=== PATIENT | female | born 1970 | race Two or more races ===

== ENCOUNTER 2016-10-19 18:34 | Inpatient (IN) | payer MEDICAID ==
[~2016-10-19] VITALS: Ht 152.4 cm; Wt 98.0 kg
[2016-10-19 19:09] LABS: Urine RBC None Seen /hpf (0 - 4)
[2016-10-19 19:21] LABS: Urine Bilirubin Negative (Negative); Urine Blood Negative /uL (Negative); Urine Color Yellow (Yellow); Urine Glucose Normal (Normal); Urine Ketone Negative (Negative); Urine Nitrite Negative (Negative); Urine Squamous Epithelial Cell FEW /hpf (<5); Urine Urobilinogen Normal (Negative); Urine pH 6.5 (5.0-8.0)
[2016-10-19 19:27] LABS: Basophils # (auto) 0 uL; Basophils % (auto) 0.5 % (0.0-2.0); Eosinophils # (auto) 0.5 uL; Eosinophils % (auto) 7.7 % (0.0-7.0); Hematocrit 39.9 % (36.0-46.0); Hemoglobin 13.6 g/dL (12.2-16.2); Lymphocytes # (auto) 1.7 uL; Lymphocytes % (auto) 24.6 % (10.0-50.0); Mean Corpuscular Hemoglobin 30.6 pg (28.0-32.0); Mean Platelet Volume 7.2 fL (7.4-10.4); Monocytes # (auto) 0.5 uL; Monocytes % (auto) 7.5 % (0.0-12.0); Neutrophils # (auto) 4.1 uL; Neutrophils % (auto) 59.7 % (37.0-80.0); Platelet Count (auto) 279 10^3/uL (140-450); Red Cell Distribution Width 13.4 % (11.6-16.0); White Blood Cell 6.9 10^3/uL (4.4-10.8)
[2016-10-19 19:42] LABS: INR 0.9 (0.9-1.15); Partial Thromboplastin Time 25.7 sec (22.64-33.71); Prothrombin Time 9.8 sec (9.37-12.3)
[2016-10-19 19:51] LABS: Albumin 3.4 g/dL (3.4-5.0); BUN/Creatinine Ratio 14.1; Bilirubin, Total 0.7 mg/dL (0.2-1.0); Calcium 8.4 mg/dL (8.5-10.1); Potassium 3.6 mmol/L (3.5-5.1); Total Protein 7.4 g/dL (6.4-8.2)
[2016-10-20] VITALS (7 sets, daily range): BP systolic 109–124; BP diastolic 64–81
[2016-10-20] MEDS ORDERED: ONDANSETRON HCL 4 MG/2 ML VIAL IV ONE (01:00)
[2016-10-20] MEDS ORDERED: HYDROmorphone HCL 2 MG/ML VL IV ONE (01:00)
[2016-10-20] MEDS ORDERED: SODIUM CHLORIDE 0.9% 1,000 ML IV ONE (01:00)
[2016-10-20] MEDS: SODIUM CHLORIDE 0.9% 1,000 ML IV SCH ×2 (02:40→18:29)
[2016-10-20] MEDS ORDERED: HYDR-531 PO (04:01)
[2016-10-20] MEDS ORDERED: ACYC400T PO (04:01)
[2016-10-20] MEDS ORDERED: ALPR1TAB7 PO (04:01)
[2016-10-20] MEDS ORDERED: FER325T PO (04:01)
[2016-10-20] MEDS: HYDROmorphone HCL 2 MG/ML VL IV PRN ×4 (06:24→21:12)
[2016-10-20] MEDS: ONDANSETRON HCL 4 MG/2 ML VIAL IV PRN ×2 (06:24→11:03)
[2016-10-20] MEDS ORDERED: cefTRIAXone 1GM/50ML D5W 50 ML IV ONE (11:30)
[2016-10-20] MEDS: metroNIDAZOLE 250MG/50 ML 50 ML IV SCH ×2 (13:53→21:11)
[2016-10-21] MEDS: HYDROmorphone HCL 2 MG/ML VL IV PRN ×6 (01:20→22:08)
[2016-10-21] MEDS: metroNIDAZOLE 250MG/50 ML 50 ML IV SCH ×3 (04:40→21:00)
[2016-10-21 05:00] VITALS: BP 115/68
[2016-10-21 05:40] LABS: Basophils # (auto) 0 uL; Basophils % (auto) 0.2 % (0.0-2.0); Eosinophils # (auto) 0.3 uL; Eosinophils % (auto) 4.8 % (0.0-7.0); Hematocrit 38.4 % (36.0-46.0); Hemoglobin 13.1 g/dL (12.2-16.2); Lymphocytes # (auto) 1.5 uL; Lymphocytes % (auto) 20.4 % (10.0-50.0); Mean Corpuscular Hemoglobin 31.4 pg (28.0-32.0); Mean Corpuscular Hgb Conc. 34.2 g/dL (32.0-36.0); Mean Corpuscular Volume 91.8 fL (80.0-100.0); Mean Platelet Volume 7.2 fL (7.4-10.4); Monocytes # (auto) 0.5 uL; Monocytes % (auto) 6.3 % (0.0-12.0); Neutrophils % (auto) 68.3 % (37.0-80.0); Platelet Count (auto) 284 10^3/uL (140-450); Red Cell Distribution Width 13.5 % (11.6-16.0); White Blood Cell 7.3 10^3/uL (4.4-10.8)
[2016-10-21 05:49] LABS: BUN/Creatinine Ratio 14.7; Calcium 7.9 mg/dL (8.5-10.1)
[2016-10-21 05:52] LABS: Total Protein 7.1 g/dL (6.4-8.2)
[2016-10-21 07:54] VITALS: BP 135/76
[2016-10-21 08:00] VITALS: BP 138/76
[2016-10-21] MEDS: MORPHINE SULF INJ 2 MG/ML SYRINGE 1ML IV PRN (08:36)
[2016-10-21] MEDS: cefTRIAXone 1GM/50ML D5W 50 ML IV SCH (09:27)
[2016-10-21] MEDS: ONDANSETRON HCL 4 MG/2 ML VIAL IV PRN (11:00)
[2016-10-21] MEDS: SODIUM CHLORIDE 0.9% 1,000 ML IV SCH (11:09)
[2016-10-21] MEDS ORDERED: POVIDONE IODINE 10 % TOPICAL OINT 30GM TOP ONE (12:55)
[2016-10-21] MEDS ORDERED: KETOROLAC TROMETH 60MG/2ML VIAL IM ONE (13:19)
[2016-10-21] MEDS ORDERED: fentaNYL CITRATE 100 MCG/2 ML VL ONE ×2 (13:19→14:05)
[2016-10-21] MEDS ORDERED: DEXAMETHASONE SOD PHOS 10MG/1ML VIAL INJ ONE (13:19)
[2016-10-21] MEDS ORDERED: MIDAZOLAM HCL 1MG/1ML-2 ML VIAL ONE (13:19)
[2016-10-21] MEDS ORDERED: ONDANSETRON HCL 4 MG/2 ML VIAL ONE (13:19)
[2016-10-21] MEDS ORDERED: HYDROmorphone HCL 2 MG/ML VL IV PRN (13:30)
[2016-10-21] MEDS ORDERED: PROPOFOL 10 MG/ML 100ML BOTTLE IV ONE (13:34)
[2016-10-21] MEDS ORDERED: LABETALOL HCL 5 MG/ML 4ML SYRINGE IV PRN (15:00)
[2016-10-21] MEDS ORDERED: ONDANSETRON HCL 4 MG/2 ML VIAL IV ONE (15:00)
[2016-10-21 16:45] VITALS: BP 133/74
[2016-10-21 20:00] VITALS: BP 116/65
[2016-10-21 22:00] VITALS: BP 116/65
[2016-10-22] MEDS: ONDANSETRON HCL 4 MG/2 ML VIAL IV PRN ×5 (03:35→22:24)
[2016-10-22] MEDS: MORPHINE SULF INJ 2 MG/ML SYRINGE 1ML IV PRN ×5 (03:35→22:19)
[2016-10-22] MEDS: SODIUM CHLORIDE 0.9% 1,000 ML IV SCH ×2 (03:55→21:05)
[2016-10-22] MEDS: metroNIDAZOLE 250MG/50 ML 50 ML IV SCH ×3 (04:54→21:06)
[2016-10-22 05:00] VITALS: BP 118/78
[2016-10-22 05:43] LABS: Basophils # (auto) 0 uL; Basophils % (auto) 0.3 % (0.0-2.0); Eosinophils # (auto) 0 uL; Hematocrit 35.6 % (36.0-46.0); Hemoglobin 12.2 g/dL (12.2-16.2); Lymphocytes # (auto) 0.8 uL; Lymphocytes % (auto) 7.8 % (10.0-50.0); Mean Corpuscular Hemoglobin 30.8 pg (28.0-32.0); Mean Corpuscular Hgb Conc. 34.2 g/dL (32.0-36.0); Mean Corpuscular Volume 90.1 fL (80.0-100.0); Mean Platelet Volume 7.5 fL (7.4-10.4); Monocytes # (auto) 0.3 uL; Monocytes % (auto) 2.9 % (0.0-12.0); Neutrophils # (auto) 9.5 uL; Platelet Count (auto) 262 10^3/uL (140-450); Red Cell Distribution Width 13.4 % (11.6-16.0); White Blood Cell 10.6 10^3/uL (4.4-10.8)
[2016-10-22 06:08] LABS: Albumin 3.2 g/dL (3.4-5.0); BUN/Creatinine Ratio 9.3; Calcium 7.9 mg/dL (8.5-10.1); Potassium 4.1 mmol/L (3.5-5.1); Total Protein 6.9 g/dL (6.4-8.2)
[2016-10-22] MEDS: cefTRIAXone 1GM/50ML D5W 50 ML IV SCH (09:07)
[2016-10-22 09:50] VITALS: BP 119/75
[2016-10-22 14:00] VITALS: BP 125/72
[2016-10-22 16:58] VITALS: BP 135/87
[2016-10-22 20:00] VITALS: BP 140/87
[2016-10-22 22:00] VITALS: BP 140/87
[2016-10-23] MEDS: MORPHINE SULF INJ 2 MG/ML SYRINGE 1ML IV PRN ×2 (03:03→08:50)
[2016-10-23] MEDS: ONDANSETRON HCL 4 MG/2 ML VIAL IV PRN ×2 (03:12→08:50)
[2016-10-23] MEDS: metroNIDAZOLE 250MG/50 ML 50 ML IV SCH (04:37)
[2016-10-23 05:00] VITALS: BP 123/88
[2016-10-23 07:11] LABS: Basophils # (auto) 0 uL; Basophils % (auto) 0.3 % (0.0-2.0); Eosinophils # (auto) 0.1 uL; Hematocrit 33.4 % (36.0-46.0); Hemoglobin 11.4 g/dL (12.2-16.2); Lymphocytes % (auto) 26.1 % (10.0-50.0); Mean Corpuscular Hemoglobin 31.2 pg (28.0-32.0); Mean Corpuscular Hgb Conc. 34.1 g/dL (32.0-36.0); Mean Corpuscular Volume 91.4 fL (80.0-100.0); Mean Platelet Volume 7.7 fL (7.4-10.4); Monocytes # (auto) 0.5 uL; Monocytes % (auto) 6.2 % (0.0-12.0); Neutrophils % (auto) 65.4 % (37.0-80.0); Platelet Count (auto) 257 10^3/uL (140-450); Red Cell Distribution Width 13.7 % (11.6-16.0); White Blood Cell 7.6 10^3/uL (4.4-10.8)
[2016-10-23 07:21] LABS: Albumin 2.8 g/dL (3.4-5.0); BUN/Creatinine Ratio 16.4; Calcium 7.7 mg/dL (8.5-10.1); Potassium 3.7 mmol/L (3.5-5.1)
[2016-10-23 07:23] LABS: Bilirubin, Total 0.6 mg/dL (0.2-1.0); Total Protein 6.3 g/dL (6.4-8.2)
[2016-10-23] MEDS: cefTRIAXone 1GM/50ML D5W 50 ML IV SCH (08:49)
[2016-10-23 09:00] VITALS: BP 135/81
== END 2016-10-23 13:30 | disposition home or self-care (01) | DRG 263 ==
LOC: ER 18:34 → OVERFLOW 18:35 → EAST 10-20 02:53
PROVIDERS: ADMIT Emergency Medicine; ATTEND Internal Medicine
PROC: 0FT44ZZ Resection of Gallbladder, Percutaneous Endoscopic Approach (ICD-10-PCS; principal; 2016-10-21 13:34)
DX: K80.12 Calculus of gallbladder with acute and chronic cholecystitis without obstruction (principal); E44.0 Moderate protein-calorie malnutrition; E66.9 Obesity, unspecified; K66.0 Peritoneal adhesions (postprocedural) (postinfection); Z68.41 Body mass index [BMI] 40.0-44.9, adult; Z71.89 Other specified counseling
CPT/HCPCS: 36415; 71010; 76705; 78226; 80053; 81001; 82150; 83690; 84702; 85025; 85610; 85730; 86850; 86900; 86901; 93005; 96361; 96374; 96375; J0696; J1100; J1885; J2250; J2405; J2704; J3490